=== PATIENT | male | born 1970 | race Caucasian/White ===

== ENCOUNTER 2023-07-17 18:58 | Inpatient (IN) | payer OTHER ==
[2023-07-17 19:46] VITALS: BMI 23.8
[2023-07-17] MEDS ORDERED: BENZONATATE 200 MG CAPSULE PO PRN (20:59)
[2023-07-17] MEDS ORDERED: POLYETHYLENE GLYCOL (HEALTHYLAX) 3350 17 GM PACKET PO PRN (20:59)
[2023-07-17] MEDS ORDERED: guaiFENesin 600 MG TABLET.ER (FP) PO PRN (20:59)
[2023-07-17] MEDS ORDERED: ONDANSETRON *ODT* 4 MG TABLET SL PRN (20:59)
[2023-07-17] MEDS ORDERED: LOPERAMIDE HCL 2 MG CAPSULE PO PRN (20:59)
[2023-07-17] MEDS ORDERED: MAG HYDROX/AL HYDROX/SIMETH 30 ML UNIT-DOSE CUP PO PRN (20:59)
[2023-07-17] MEDS ORDERED: ACETAMINOPHEN 325 MG TABLET (FP) PO PRN (20:59)
[2023-07-17] MEDS ORDERED: NALOXONE HCL 0.4 MG/ML VIAL IM PRN (20:59)
[2023-07-17] MEDS ORDERED: NALOXONE HCL (KLOXXADO) 8 MG SPRAY NS PRN (20:59)
[2023-07-17] MEDS ORDERED: BENZOCAINE/MENTHOL (CHLORASEPTIC ) LOZENGE MM PRN (20:59)
[2023-07-17] MEDS ORDERED: MAGNESIUM HYDROX 2400MG/30ML ORAL SUSPENSION 30 ML CUP PO PRN (20:59)
[2023-07-17] MEDS ORDERED: levETIRAcetam 500 MG TABLET (FP) PO ONE (21:59)
[2023-07-17] MEDS: levETIRAcetam 500 MG TABLET (FP) PO SCH (22:02)
[2023-07-17] MEDS: MELATONIN 5 MG TABLETS PO SCH (22:45)
[2023-07-17] MEDS: THIAMINE 100 MG TABLET PO SCH (22:45)
[2023-07-17] MEDS: chlordiazePOXIDE HCL 25 MG CAPSULE PO SCH (22:46)
[2023-07-18] MEDS: chlordiazePOXIDE HCL 25 MG CAPSULE PO PRN (02:18)
[2023-07-18] MEDS: METHOCARBAMOL 500 MG TABLET PO PRN (06:55)
[2023-07-18] MEDS: hydrOXYzine PAMOATE 25 MG CAPSULE (FP) PO PRN (06:55)
[2023-07-18] MEDS: PRENATAL VITAMINS W/ FOLIC ACID TABLET (FP) PO SCH (10:09)
[2023-07-18] MEDS: BISMUTH SUBSALICYLATE 524 MG/30 ML PO PRN (10:11)
[2023-07-18 10:15] LABS: HEMATOCRIT 40.9 % (35.4-49); HEMOGLOBIN 13.4 GM/dL (11.7-16.9); MCH 31.3 pg (25.7-33.7); MCHC 32.8 g/dl (32.0-35.9); MEAN CELL VOLUME 95.3 fl (80-96); PLATELET COUNT 150 10^3/uL (134-434); RBC 4.29 M/mm3 (4.00-5.60); RDW 16.6 % (11.9-15.9)
[2023-07-18 10:22] LABS: CHLORIDE 101 mmol/L (98-107); POTASSIUM 3.6 mmol/L (3.5-5.1); SODIUM 137 mmol/L (136-145)
[2023-07-18 10:29] LABS: ALBUMIN 3.6 g/dl (3.4-5.0); ANION GAP 6 mmol/L (4-13); BLOOD UREA NITROGEN 15.4 mg/dL (7-18); CALCIUM 8.8 mg/dL (8.5-10.1); CO2 30 mmol/L (21-32); GLUCOSE,RANDOM 109 mg/dL (74-106)
[2023-07-18 10:31] LABS: SGPT/ALT 79 U/L (13-61)
[2023-07-18 10:32] LABS: CREATININE 0.6 mg/dL (0.55-1.3); SGOT/AST 79 U/L (15-37)
[2023-07-18 10:33] LABS: BILIRUBIN,TOTAL 0.4 mg/dL (0.2-1); TOT PROT 6.2 g/dl (6.4-8.2)
[2023-07-18 10:34] LABS: ALK PHOS 74 U/L (45-117)
[2023-07-18] MEDS: IBUPROFEN 400 MG TABLET (FP) PO PRN (12:16)
[2023-07-18] MEDS: DICYCLOMINE HCL 10 MG CAPSULE PO PRN (16:44)
[2023-07-18] MEDS: propRANOLol HCL 10 MG TABLET PO ONE (17:13)
[2023-07-19] MEDS: chlordiazePOXIDE HCL 25 MG CAPSULE PO SCH (05:58)
[2023-07-20] MEDS ORDERED: chlordiazePOXIDE HCL 10 MG CAPSULE PO PRN
[2023-07-20] MEDS: chlordiazePOXIDE HCL 10 MG CAPSULE PO SCH (05:34)
[2023-07-20] MEDS: LACTULOSE 20 GM/30 ML UDC (FOR ORAL USE ONLY) PO SCH (17:36)
[2023-07-21] MEDS: chlordiazePOXIDE HCL 10 MG CAPSULE PO SCH (05:30)
[2023-07-21] MEDS: IBUPROFEN 600 MG TABLET (FP) PO PRN (05:31)
[2023-07-21 09:24] VITALS: BP 128/78; PULSE 85; RESP 17; TEMP 98
[2023-07-22] MEDS ORDERED: chlordiazePOXIDE HCL 10 MG CAPSULE PO ONE (05:00)
== END 2023-07-21 09:17 | disposition home or self-care (01) | DRG 775 ==
LOC: YASAS 18:58 → Y3N 22:01
PROVIDERS: ADMIT Allergy & Immunology; ATTEND Surgery
PROC: HZ2ZZZZ Detoxification Services for Substance Abuse Treatment (ICD-10-PCS; principal; 2023-07-17)
DX: F10.230 Alcohol dependence with withdrawal, uncomplicated (principal); F41.9 Anxiety disorder, unspecified; F32.A Depression, unspecified; E72.20 Disorder of urea cycle metabolism, unspecified; G40.909 Epilepsy, unspecified, not intractable, without status epilepticus; I10 Essential (primary) hypertension; Z87.891 Personal history of nicotine dependence
CPT/HCPCS: 36415; 71046-TC-FY; 80053; 80177; 80307; 82140; 85027; 86780; 93005; 93010

== ENCOUNTER 2023-09-27 16:30 | Inpatient (IN) | payer OTHER ==
[2023-09-27 18:07] VITALS: BMI 23.4
[2023-09-27] MEDS ORDERED: BENZOCAINE/MENTHOL (CHLORASEPTIC ) LOZENGE MM PRN (20:26)
[2023-09-27] MEDS ORDERED: POLYETHYLENE GLYCOL (HEALTHYLAX) 3350 17 GM PACKET PO PRN (20:26)
[2023-09-27] MEDS ORDERED: ACETAMINOPHEN 325 MG TABLET (FP) PO PRN (20:26)
[2023-09-27] MEDS ORDERED: guaiFENesin 600 MG TABLET.ER (FP) PO PRN (20:26)
[2023-09-27] MEDS ORDERED: LOPERAMIDE HCL 2 MG CAPSULE PO PRN (20:26)
[2023-09-27] MEDS ORDERED: MAGNESIUM HYDROX 2400MG/30ML ORAL SUSPENSION 30 ML CUP PO PRN (20:26)
[2023-09-27] MEDS ORDERED: ONDANSETRON *ODT* 4 MG TABLET SL PRN (20:26)
[2023-09-27] MEDS ORDERED: BENZONATATE 200 MG CAPSULE PO PRN (20:26)
[2023-09-27] MEDS ORDERED: BISMUTH SUBSALICYLATE 524 MG/30 ML PO PRN (20:26)
[2023-09-27] MEDS ORDERED: DICYCLOMINE HCL 10 MG CAPSULE ONE (20:39)
[2023-09-27] MEDS ORDERED: chlordiazePOXIDE HCL 25 MG CAPSULE ONE (20:39)
[2023-09-27] MEDS ORDERED: METHOCARBAMOL 500 MG TABLET ONE (20:40)
[2023-09-27] MEDS ORDERED: IBUPROFEN 600 MG TABLET (FP) PO ONE (20:41)
[2023-09-27] MEDS: DICYCLOMINE HCL 10 MG CAPSULE PO PRN (20:42)
[2023-09-27] MEDS: METHOCARBAMOL 500 MG TABLET PO PRN (20:42)
[2023-09-27] MEDS: chlordiazePOXIDE HCL 25 MG CAPSULE PO ONE (20:42)
[2023-09-27] MEDS: IBUPROFEN 600 MG TABLET (FP) PO PRN (20:45)
[2023-09-27] MEDS: levETIRAcetam 500 MG TABLET (FP) PO SCH (22:23)
[2023-09-27] MEDS: THIAMINE 100 MG TABLET PO SCH (22:23)
[2023-09-27] MEDS: MELATONIN 5 MG TABLETS PO SCH (22:23)
[2023-09-27] MEDS: chlordiazePOXIDE HCL 25 MG CAPSULE PO SCH (22:23)
[2023-09-28] MEDS: IBUPROFEN 400 MG TABLET (FP) PO PRN (04:44)
[2023-09-28] MEDS: MAG HYDROX/AL HYDROX/SIMETH 30 ML UNIT-DOSE CUP PO PRN (05:35)
[2023-09-28] MEDS: PRENATAL VITAMINS W/ FOLIC ACID TABLET (FP) PO SCH (10:03)
[2023-09-28 11:14] LABS: CHLORIDE 97 mmol/L (98-107); POTASSIUM 3.9 mmol/L (3.5-5.1); SODIUM 135 mmol/L (136-145)
[2023-09-28 11:21] LABS: CALCIUM 9.3 mg/dL (8.5-10.1)
[2023-09-28 11:22] LABS: ANION GAP 11 mmol/L (4-13); BLOOD UREA NITROGEN 17.9 mg/dL (7-18); CO2 28 mmol/L (21-32); GLUCOSE,RANDOM 162 mg/dL (74-106); HEMATOCRIT 40.2 % (35.4-49); HEMOGLOBIN 13.9 GM/dL (11.7-16.9); MCH 32.3 pg (25.7-33.7); MCHC 34.4 g/dl (32.0-35.9); MEAN CELL VOLUME 93.9 fl (80-96); MEAN PLT VOLUME 8.5 fl (7.5-11.1); PLATELET COUNT 133 10^3/uL (134-434); RBC 4.28 M/mm3 (4.00-5.60); RDW 18.2 % (11.9-15.9); WHITE BLOOD COUNT 5.4 K/mm3 (4.0-10.0)
[2023-09-28 11:24] LABS: CREATININE 0.8 mg/dL (0.55-1.3); SGOT/AST 160 U/L (15-37); SGPT/ALT 168 U/L (13-61)
[2023-09-28 11:25] LABS: TOT PROT 6.8 g/dl (6.4-8.2)
[2023-09-28 11:26] LABS: BILIRUBIN,TOTAL 0.9 mg/dL (0.2-1)
[2023-09-28 11:27] LABS: ALK PHOS 81 U/L (45-117)
[2023-09-28] MEDS: chlordiazePOXIDE HCL 25 MG CAPSULE PO PRN (13:17)
[2023-09-29] MEDS: chlordiazePOXIDE HCL 25 MG CAPSULE PO SCH (05:45)
[2023-09-30] MEDS ORDERED: chlordiazePOXIDE HCL 10 MG CAPSULE PO PRN
[2023-09-30] MEDS: chlordiazePOXIDE HCL 10 MG CAPSULE PO SCH (05:42)
[2023-10-01] MEDS: chlordiazePOXIDE HCL 10 MG CAPSULE PO SCH (05:27)
[2023-10-02] MEDS: chlordiazePOXIDE HCL 10 MG CAPSULE PO ONE (05:29)
[2023-10-02 09:27] VITALS: BP 146/84; PULSE 70; RESP 16; TEMP 96.6
== END 2023-10-02 09:17 | disposition other institution (70) | DRG 775 ==
LOC: YASAS 16:30 → Y3N 20:54
PROVIDERS: ADMIT Allergy & Immunology; ATTEND Surgery
PROC: HZ2ZZZZ Detoxification Services for Substance Abuse Treatment (ICD-10-PCS; principal; 2023-09-27)
DX: F10.230 Alcohol dependence with withdrawal, uncomplicated (principal); F41.9 Anxiety disorder, unspecified; F32.A Depression, unspecified; R74.01 Elevation of levels of liver transaminase levels; R73.9 Hyperglycemia, unspecified; Z86.69 Personal history of other diseases of the nervous system and sense organs
CPT/HCPCS: 36415; 80053; 80305; 80307; 85027; 86780